=== PATIENT | female | born 1945 | race Caucasian/White ===

== ENCOUNTER 2021-07-06 10:37 | Emergency (ER) | payer MEDICARE, OTHER ==
[2021-07-06 12:21] LABS: BASOPHIL 0.7 % (0-2); EOSINOPHIL 2.9 % (0-7); HCT 43.2 % (37.0-47.0); HGB 13.8 g/dl (12.5-16.0); LYMPHOCYTE 24.6 % (15-48); MCH 28.1 pg (25.0-31.0); MCHC 31.9 g/dL (32.0-36.0); MONOCYTE 12.5 % (0-12); MPV 9.7 fL (6.0-9.5); NEUTROPHIL 58.3 % (41-80); NRBC 0; PLT 344 K/uL (150-400); RBC 4.91 M/uL (4.20-5.40); RDW 12.8 % (11.5-14.0); WBC 10.3 K/uL (4.0-10.5)
[2021-07-06 12:50] LABS: ALBUMIN 3.1 g/dL (3.4-5.0); BILIRUBIN - TOTAL 0.5 mg/dL (0.2-1.0); BUN/CREAT RATIO (CALC) 19.2 RATIO; CREATININE 0.73 mg/dL (0.51-0.95); GLOBULIN (CALCULATION) 4.7 g/dL; POTASSIUM 4.2 mmol/L (3.5-5.1); TOTAL PROTEIN 7.8 g/dL (6.4-8.2)
[2021-07-06 13:43] LABS: BILIRUBIN NEGATIVE (NEGATIVE); BLOOD TRACE-INTACT Ery/uL (NEGATIVE); CLARITY CLEAR (CLEAR); COLOR YELLOW (YELLOW); GLUCOSE (U) NORMAL (NORMAL); LEUKOCYTES TRACE Leu/uL (NEGATIVE); NITRITE NEGATIVE (NEGATIVE); PROTEIN NEGATIVE (NEGATIVE); SPECIFIC GRAVITY 1.015 (1.001-1.030); UROBILINOGEN 0.2 mg/dL (0.2-1.0)
[2021-07-06 13:51] LABS: BACTERIA TRACE
== END 2021-07-06 15:28 | disposition home or self-care (01) ==
LOC: FER 10:37
PROVIDERS: Nurse Practitioner Family
DX: E86.0 Dehydration (principal); E87.1 Hypo-osmolality and hyponatremia; M25.511 Pain in right shoulder; M25.552 Pain in left hip; M25.562 Pain in left knee; I10 Essential (primary) hypertension; Z86.73 Personal history of transient ischemic attack (TIA), and cerebral infarction without residual deficits; Z87.19 Personal history of other diseases of the digestive system; Z87.891 Personal history of nicotine dependence; Z91.040 Latex allergy status
CPT/HCPCS: 36415; 70450; 71045; 72125; 80053; 81001; 85025; 87088; 93005; J7030